=== PATIENT | female | born 1965 | race African-American/Black ===

== ENCOUNTER 2017-12-29 18:42 | Emergency (ER) | payer BC ==
[~2017-12-29] VITALS: Ht 157.5 cm; Wt 52.0 kg
[2017-12-29 18:45] VITALS: BP 134/82
== END 2017-12-29 21:30 | disposition left against medical advice (07) ==
LOC: ER 18:53
DX: M25.561 Pain in right knee (principal); Z53.21 Procedure and treatment not carried out due to patient leaving prior to being seen by health care provider

== ENCOUNTER 2023-12-21 20:14 | Emergency (ER) | payer BC ==
[~2023-12-21] VITALS: Ht 157.5 cm; Wt 70.0 kg
[2023-12-21 21:00] VITALS: BP 136/84; PULSE 109; RESP 16; O2SAT 100
[2023-12-22 01:15] VITALS: TEMP 98.5
[2023-12-22] MEDS: ACETAMINOPHEN 325MG TABLET PO STA (01:15)
== END 2023-12-22 02:43 | disposition left against medical advice (07) ==
LOC: ER 20:14
DX: M79.89 Other specified soft tissue disorders (principal); J45.909 Unspecified asthma, uncomplicated; Z85.9 Personal history of malignant neoplasm, unspecified
CPT/HCPCS: 99282